=== PATIENT | female | born 1955 | race Caucasian/White ===

== ENCOUNTER 2021-05-15 16:31 | Emergency (ER) | payer MEDICAID, OTHER ==
[~2021-05-15] VITALS: Ht 157.5 cm; Wt 46.3 kg
[2021-05-15 16:54] VITALS: BP 134/70
--- NOTE | 2021-05-15 17:06 | NUR ---
PATIENT AMBULATED TO BED 8
[2021-05-15] MEDS ORDERED: NACL 0.9% 1,000 ML IV ONE (17:15)
[2021-05-15 17:34] LABS: BASOPHILS # (AUTO) 0.1 K/uL (0.00-0.22); BASOPHILS % (AUTO) 1.1 % (0.0-2.0); EOSINOPHILS # (AUTO) 0.1 K/uL (0-0.4); EOSINOPHILS % (AUTO) 1.9 % (0.0-4.0); HEMATOCRIT 40.7 % (36-48); LYMPHOCYTES # (AUTO) 2.4 K/uL (2.5-16.5); LYMPHOCYTES % (AUTO) 39.4 % (20.5-51.1); MEAN CORPUSCULAR HEMOGLOBIN 31 pg (27-31); MEAN CORPUSCULAR HGB CONC 34 g/dL (33-37); MEAN CORPUSCULAR VOLUME 90.3 fL (80-94); MONOCYTES # (AUTO) 0.4 K/uL (0.8-1.0); NEUTROPHILS # (AUTO) 3.2 K/uL (1.8-7.7); NEUTROPHILS % (AUTO) 51.6 % (42.2-75.2); PLATELET COUNT (AUTO) 231 K/uL (140-450); RED CELL DISTRIBUTION WIDTH 13.8 % (11.6-13.7); WHITE BLOOD COUNT (AUTO) 6.1 K/uL (4.8-10.8)
--- NOTE | 2021-05-15 17:48 | NUR ---
66 Y/O F BIB SELF FROM HOME, C/O ABD PAIN FOR 4 DAYS WITH N&V AND DIARRHEA. PT STATES DUE TO HER INSURANCE SHE HASNT BEEN ABLE TO GET SUPPLIES TO HELP WITH GLUCOSE CONTROL. PT ALSO STATES SHE HAS BEEN FEELING BODY ACHES, WEAKNESS AND DIZZY. SKIN IS PINK/WARM/DRY; AAOX4 WITH EVEN AND STEADY GAIT; LUNGS CLEAR BL; HR EVEN AND REGULAR; PT DENIES ANY FEVER, CP, SOB, OR COUGH AT THIS TIME; PATIENT STATES PAIN OF 9/10 AT THIS TIME; VSS; PATIENT POSITIONED FOR COMFORT; HOB ELEVATED; BEDRAILS UP X2; BED DOWN. ER MADE AWARE OF PT STATUS. PMH: DM2 PRESTON
[2021-05-15 17:54] LABS: ANION GAP 14.8 (8-16); CARBON DIOXIDE 27.5 mmol/L (21-32); CREATININE 0.9 mg/dL (0.6-1.3); POTASSIUM 5.3 mmol/L (3.5-5.1); TOTAL BILIRUBIN 0.5 mg/dL (0.0-1.0)
[2021-05-15] MEDS ORDERED: INSULIN REGULAR, HUMAN 100 UNIT/ML VIAL IVP ONE (18:25)
[2021-05-15] MEDS ORDERED: ONDANSETRON 4 MG/2 ML VIAL IVP ONE (18:30)
[2021-05-15] MEDS ORDERED: ONDA8TAB87 PO (18:36)
[2021-05-15] MEDS ORDERED: LANTUS SUBQ (18:36)
[2021-05-15] MEDS ORDERED: CIPR500T4 PO (18:36)
[2021-05-15] MEDS ORDERED: INSU100I7 SQ (18:36)
--- NOTE | 2021-05-15 19:17 | NUR ---
Pt report given to PRABHU SHAHID. Transfer of care at this time.
--- NOTE | 2021-05-15 20:09 | NUR ---
AMBULATED TO BR WITH STEADY GAIT
[2021-05-15 20:32] VITALS: BP 134/70
--- NOTE | 2021-05-15 20:32 | NUR ---
Patient discharged with v/s stable. Written and verbal after care instructions given and explained. Patient alert, oriented and verbalized understanding of instructions. Ambulatory with steady gait. All questions addressed prior to discharge. ID band removed. Patient advised to follow up with PMD. Rx of CIPRO, INSULIN, ZOFRAN given. Patient educated on indication of medication including possible reaction and side effects. Opportunity to ask questions provided and answered. IV D/C'D, CATHETER INTACT
== END 2021-05-15 20:32 | disposition home or self-care (01) ==
LOC: MED 16:31
DX: R53.1 Weakness (principal); N39.0 Urinary tract infection, site not specified; E11.9 Type 2 diabetes mellitus without complications; R11.0 Nausea; I10 Essential (primary) hypertension; Z79.2 Long term (current) use of antibiotics; Z79.899 Other long term (current) drug therapy; Z98.890 Other specified postprocedural states
CPT/HCPCS: 36415; 80053; 81002; 85025; 96361; 96374; 96375; 99284; J1815; J2405; J7030